=== PATIENT | male | born 1990 | race Hispanic/Latino ===

== ENCOUNTER 2019-04-10 20:33 | Emergency (ER) | payer SELFPAY ==
[2019-04-10 21:24] LABS: Absolute Lymphocytes (CBC) 2.6 K/uL (0.7-4.9); Absolute Monocytes 0.9 K/uL (0.1-1.3); Absolute Neutrophil 4.6 K/uL (1.8-8.0); Basophils % 0.5 % (0-1.3); Eosinophils % 4.6 % (0-4.4); Hematocrit 44.6 % (39.6-49.0); Lymphocytes % 30.7 % (15.3-44.8); MPV 9.1 fL (7.6-11.3); Monocytes % 10.5 % (3.3-12.3); RBC Red Blood Cell Count 5.08 M/uL (4.33-5.43)
[2019-04-10 21:27] LABS: Protime INR 1.04
--- NOTE | 2019-04-10 21:41 | EDPHYS ---
Physician Documentation [facility] Name: Brennan Everett Age: 28 yrs Sex: Male : 1990 Arrival Date: 04/10/2019 Time: 20:34 Bed 15 Private MD: ED Physician Teddy Arguello HPI: 04/10 20:55 This 28 yrs old Male presents to ER via Unassigned with complaints of lt side juan pablo numbness. 20:55 The patient's problem is reported as numbness to left face and left leg, possible left juan pablo facial weakness. Onset: The symptoms/episode began/occurred just prior to arrival, today. Duration: The episode is continuous. Context: the episode(s) was witnessed, by a friend. The symptoms are alleviated by nothing. The symptoms are aggravated by nothing. Associated signs and symptoms: The patient has no apparent associated signs or symptoms. Severity of symptoms: At their worst the symptoms were very mild in the emergency department the symptoms have improved moderately. Patient's baseline: Neuro: alert and fully oriented. The patient has not experienced similar symptoms in the past. Historical: - Home Meds: 21:01 None [Active]; ea - PMHx: 21:01 None; ea - PSHx: 21:01 None; ea - Immunization history:: Adult Immunizations up to date. - Social history:: Smoking status: Patient/guardian denies using tobacco. - Family history:: not pertinent. - Ebola Screening: : No symptoms or risks identified at this time. ROS: 20:55 Constitutional: Negative for fever, chills, and weight loss, Eyes: Negative for injury, juan pablo pain, redness, and discharge, ENT: Negative for injury, pain, and discharge, Neck: Negative for injury, pain, and swelling, Cardiovascular: Negative for chest pain, palpitations, and edema, Respiratory: Negative for shortness of breath, cough, wheezing, and pleuritic chest pain, Abdomen/GI: Negative for abdominal pain, nausea, vomiting, diarrhea, and constipation, Back: Negative for injury and pain, : Negative for injury, bleeding, discharge, and swelling, MS/Extremity: Negative for injury and deformity, Skin: Negative for injury, rash, and discoloration, Psych: Negative for depression, anxiety, suicide ideation, homicidal ideation, and hallucinations, Allergy/Immunology: Negative for hives, rash, and allergies, Endocrine: Negative for neck swelling, polydipsia, polyuria, polyphagia, and marked weight changes, Hematologic/Lymphatic: Negative for swollen nodes, abnormal bleeding, and unusual bruising. 20:55 Neuro: Positive for numbness, tingling, of the face and left leg. Exam: 20:55 Radiologist reports: see report juan pablo 20:55 Constitutional: This is a well developed, well nourished patient who is awake, alert, and in no acute distress. Head/Face: Normocephalic, atraumatic. Eyes: Pupils equal round and reactive to light, extra-ocular motions intact. Lids and lashes normal. Conjunctiva and sclera are non-icteric and not injected. Cornea within normal limits. Periorbital areas with no swelling, redness, or edema. ENT: Nares patent. No nasal discharge, no septal abnormalities noted. Tympanic membranes are normal and external auditory canals are clear. Oropharynx with no redness, swelling, or masses, exudates, or evidence of obstruction, uvula midline. Mucous membranes moist. Neck: Trachea midline, no thyromegaly or masses palpated, and no cervical lymphadenopathy. Supple, full range of motion without nuchal rigidity, or vertebral point tenderness. No Meningismus. Chest/axilla: Normal chest wall appearance and motion. Nontender with no deformity. No lesions are appreciated. Cardiovascular: Regular rate and rhythm with a normal S1 and S2. No gallops, murmurs, or rubs. Normal PMI, no JVD. No pulse deficits. Respiratory: Lungs have equal breath sounds bilaterally, clear to auscultation and percussion. No rales, rhonchi or wheezes noted. No increased work of breathing, no retractions or nasal flaring. Abdomen/GI: Soft, non-tender, with normal bowel sounds. No distension or tympany. No guarding or rebound. No evidence of tenderness throughout. Back: No spinal tenderness. No costovertebral tenderness. Full range of motion. Male : Normal genitalia with no discharge or lesions. Skin: Warm, dry with normal turgor. Normal color with no rashes, no lesions, and no evidence of cellulitis. MS/ Extremity: Pulses equal, no cyanosis. Neurovascular intact. Full, normal range of motion. Neuro: Awake and alert, GCS 15, oriented to person, place, time, and situation. Cranial nerves II-XII grossly intact. Motor strength 5/5 in all extremities. Sensory grossly intact. Cerebellar exam normal. Normal gait. Psych: Awake, alert, with orientation to person, place and time. Behavior, mood, and affect are within normal limits. 21:39 Neuro: Orientation: is normal, appropriate for stated age, no acute changes, Mentation: juan pablo is normal, appropriate for stated age, no acute changes, Memory: is normal, appropriate for stated age, no acute changes, Cranial nerves: grossly normal, is grossly normal based on the patient's age, no acute changes, visual aguila are intact. extraocular movements are intact, Decreased sensation on left ear, left mosque and left jaw, Nystagmus is absent. Motor: is normal, is grossly normal based on the patient's age, no acute changes, moves all fours, strength is normal, strength is 5/5 in all extremities, Sensation: no obvious gross deficits, appropriate no acute changes, Gait: is steady, appropriate for age, Deep tendon reflexes are 2+ (normal) in the bilateral brachioradialis, bicep, tricep and patellar and Achilles tendons, Babinski testing is normal, seizure activity, is not displayed by the patient. 21:41 Neuro: pt at 931pm, states without deficit, at his baseline, nih 0, [address] juan pablo belle neuro manager web application, no answer , no response. not a tpa candidate at this time. will transfer to neuro. 21:58 Neuro: dr belle, [id number],, after story, no tpa. [facility] 22:08 Neuro: 1015pm, pt with no motor or sensory deficits. [facility] Vital Signs: 20:59 BP 135 / 85; Pulse 102; Resp 18; Temp 98.1; Pulse Ox 99% on R/A; Pain 0/10; ea 21:59 BP 125 / 92; Pulse 81; Resp 20; Pulse Ox 99% on R/A; jb4 22:30 BP 123 / 84; Pulse 75; Resp 17; Pulse Ox 100% on R/A; jb4 23:17 BP 121 / 81; Pulse 73; Resp 16; Pulse Ox 100% on R/A; jb4 NIH Stroke Scale Scores: 20:59 NIHSS Score: 0 ea 20:59 NIHSS Score: 0 [facility] [place] Coma Score: 21:05 Eye Response: spontaneous(4). Verbal Response: oriented(5). Motor Response: obeys jb4 commands(6). Total: 15. 21:41 Eye Response: spontaneous(4). Verbal Response: oriented(5). Motor Response: obeys juan pablo commands(6). Total: 15. 21:59 Eye Response: spontaneous(4). Verbal Response: oriented(5). Motor Response: obeys jb4 commands(6). Total: 15. 22:30 Eye Response: spontaneous(4). Verbal Response: oriented(5). Motor Response: obeys jb4 commands(6). Total: 15. 23:17 Eye Response: spontaneous(4). Verbal Response: oriented(5). Motor Response: obeys jb4 commands(6). Total: 15. MDM: 20:38 Patient medically screened. [facility] 20:59 Data reviewed: vital signs, nurses notes, lab test result(s), EKG, radiologic studies, [facility] CT scan, doppler, plain films. 04/10 20:54 Order name: Basic Metabolic Panel [facility] 04/10 20:54 Order name: CBC with Diff [facility] 04/10 20:54 Order name: LFT's [facility] 04/10 20:54 Order name: Magnesium; Complete Time: 21:58 [facility] 04/10 20:54 Order name: NT PRO-BNP; Complete Time: 21:58 [facility] 04/10 20:54 Order name: PT-INR; Complete Time: 21:28 [facility] 04/10 20:54 Order name: Troponin (emerg Dept Use Only); Complete Time: 21:58 [facility] 04/10 20:54 Order name: XRAY Chest (1 view) [facility] 04/10 20:54 Order name: US Carotid Artery Bilateral [facility] 04/10 20:54 Order name: UDS; Complete Time: 22:24 [facility] 04/10 20:57 Order name: Basic Metabolic Panel; Complete Time: 21:58 EDTN 04/10 20:57 Order name: CBC with Automated Diff; Complete Time: 21:28 EDTN 04/10 20:57 Order name: Liver (Hepatic) Function; Complete Time: 21:58 EDTN 04/10 22:16 Order name: Urine Dipstick--Ancillary (enter results) [facility] 04/10 20:54 Order name: EKG; Complete Time: 20:57 [facility] 04/10 20:54 Order name: Cardiac monitoring; Complete Time: 21:26 [facility] 04/10 20:54 Order name: EKG - Nurse/Tech; Complete Time: 21:26 [facility] 04/10 20:54 Order name: IV Saline Lock; Complete Time: 21:25 [facility] 04/10 20:54 Order name: Labs collected and sent; Complete Time: 21:25 [facility] 04/10 20:54 Order name: O2 Per Protocol; Complete Time: 21:25 [facility] 04/10 20:54 Order name: O2 Sat Monitoring; Complete Time: 21:25 [facility] 04/10 20:54 Order name: CT Stroke Brain w/o Contrast [facility] 04/10 20:54 Order name: CT Head Angio [facility] Administered Medications: 21:50 Drug: NS 0.9% 1000 ml Route: IV; Rate: 1 bolus; Site: right antecubital; jb4 21:50 Drug: foLIC Acid 1 mg Route: IVPB; Site: right antecubital; jb4 22:20 Follow up: Response: No adverse reaction; IV Status: Completed infusion; IV Intake: jb4 100ml 21:50 Drug: Aspirin Chewable Tablet 324 mg Route: PO; jb4 22:21 Follow up: Response: No adverse reaction jb4 22:20 Drug: Potassium Effervescent Tablet 50 mEq Route: PO; jb4 Point of Care Testing: Blood Glucose: 21:05 Blood Glucose: 95 mg/dL; jb4 Ranges: Critical Glucose Levels:Adult <50 mg/dl or >400 mg/dl <40 mg/dl or >180 mg/dl Disposition: 04/11/19 00:10 Patient has left against medical advice. - Patients states they are going to Home. - Condition is Stable. NIH Stroke Scale - NIH Stroke Score Date: 04/10/2019 Time: 20:59 Total Score = 0 1a. Level of Consciousness (LOC) - 0(Alert) 1b. Level of Consciousness (LOC) (Year \T\ Age) - 0(Both) 1c. LOC Commands (Open \T\ Closes Eyes/Power Distribution Engineer) - 0(Both) 2. Best Gaze (Lateral Gaze Paresis) - 0(Normal) 3. Visual Field Loss - 0(No visual loss) 4. Facial Palsy - 0(Normal) 5a. Left Arm: Motor (10-second hold) - 0(No drift) 5b. Right Arm: Motor (10-second hold) - 0(No drift) 6a. Left Leg: Motor (5-second hold - always test supine) - 0(No drift) 6b. Right Leg: Motor (5-second hold - always test supine) - 0(No drift) 7. Limb Ataxia (finger/nose \T\ heel/light - test with eyes open) - 0(Absent) 8. Sensory Loss (pinprick arms/legs/face) - 0(Normal) 9. Best Language: Aphasia (description/naming/reading) - 0(No aphasia) 10. Dysarthria (speech clarity - read or repeat words) - 0(Normal) 11. Extinction and Inattention (visual/tactile/auditory/spatial/personal) - 0(No abnormality) Initials: ana NIH Stroke Scale - NIH Stroke Score Date: 04/10/2019 Time: 20:59 Total Score = 0 1a. Level of Consciousness (LOC) - 0(Alert) 1b. Level of Consciousness (LOC) (Year \T\ Age) - 0(Both) 1c. LOC Commands (Open \T\ Closes Eyes/Power Distribution Engineer) - 0(Both) 2. Best Gaze (Lateral Gaze Paresis) - 0(Normal) 3. Visual Field Loss - 0(No visual loss) 4. Facial Palsy - 0(Normal) 5a. Left Arm: Motor (10-second hold) - 0(No drift) 5b. Right Arm: Motor (10-second hold) - 0(No drift) 6a. Left Leg: Motor (5-second hold - always test supine) - 0(No drift) 6b. Right Leg: Motor (5-second hold - always test supine) - 0(No drift) 7. Limb Ataxia (finger/nose \T\ heel/light - test with eyes open) - 0(Absent) 8. Sensory Loss (pinprick arms/legs/face) - 0(Normal) 9. Best Language: Aphasia (description/naming/reading) - 0(No aphasia) 10. Dysarthria (speech clarity - read or repeat words) - 0(Normal) 11. Extinction and Inattention (visual/tactile/auditory/spatial/personal) - 0(No abnormality) Initials: juan pablo Signatures: Dispatcher [employer] EDTeddy Mendieta MD MD cha Ballard, Brenda RN RN Sal Baker, RN RN jb4 Mary Jo Alberto, RN RN ea Corrections: (The following items were deleted from the chart) 22:26 21:39 04/10/2019 21:39 Transfer ordered to [facility]. Diagnosis is Transient cerebral ischemic attack, unspecified - resolves. Reason for transfer: Higher level of care. Accepting physician is to . Condition is Stable. Problem is new. Symptoms are resolved. [facility] 04/11 00:10 04/10 22:27 Hospitalization Ordered by Serge Diaz MD for Observation. karen Preliminary diagnosis is Transient cerebral ischemic attack, unspecified - resolved; Hypokalemia. Bed requested for Telemetry/MedSurg (observation). Status is Observation. Condition is Stable. Problem is new. Symptoms have improved. UTI on Admission? No. juan pablo
--- NOTE | 2019-04-10 21:41 | ER ---
Nurse's Notes [facility] Name: Brennan Everett Age: 28 yrs Sex: Male : 1990 Arrival Date: 04/10/2019 Time: 20:34 Bed 15 Private MD: Diagnosis: Presentation: 04/10 20:57 Presenting complaint: Patient states: Pt reports he has been having left face and leg ea numbness around 8 PM. Transition of care: patient was not received from another setting of care. Onset of symptoms was April 10, 2019. Risk Assessment: Do you want to hurt yourself or someone else? Patient reports no desire to harm self or others. Initial Sepsis Screen: Does the patient meet any 2 criteria? No. Patient's initial sepsis screen is negative. Does the patient have a suspected source of infection? No. Patient's initial sepsis screen is negative. Care prior to arrival: None. 20:57 Method Of Arrival: Wheelchair ea 20:57 Acuity: JILL 3 ea Historical: - Home Meds: 21:01 None [Active]; ea - PMHx: 21:01 None; ea - PSHx: 21:01 None; ea - Immunization history:: Adult Immunizations up to date. - Social history:: Smoking status: Patient/guardian denies using tobacco. - Family history:: not pertinent. - Ebola Screening: : No symptoms or risks identified at this time. Screenin:59 Abuse screen: Denies threats or abuse. Nutritional screening: No deficits noted. ea Tuberculosis screening: No symptoms or risk factors identified. 21:05 Fall Risk IV access (20 points). Gait- Normal/Bed Rest/Wheelchair (0 pts) Total Saenz jb4 Fall Scale indicates No Risk (0-24 pts). Assessment: 20:59 General: Appears in no apparent distress. comfortable, Behavior is calm, cooperative, jb4 appropriate for age. Pain: Denies pain. Neuro: Level of Consciousness is awake, alert, obeys commands, Oriented to person, place, time, situation, Process Controls Technician are equal bilaterally Moves all extremities. Full function Gait is steady, Speech is normal, Facial symmetry appears normal, Pupils are PERRLA, Intact numbness to left leg and left face.. Cardiovascular: Patient's skin is warm and dry. Rhythm is sinus rhythm. Respiratory: Airway is patent Respiratory effort is even, unlabored, Respiratory pattern is regular, symmetrical, Breath sounds are clear bilaterally. GI: No signs and/or symptoms were reported involving the gastrointestinal system. : No signs and/or symptoms were reported regarding the genitourinary system. EENT: No signs and/or symptoms were reported regarding the EENT system. Derm: Skin is intact, Skin is pink, warm \T\ dry. Musculoskeletal: Circulation, motion, and sensation intact. Range of motion: intact in all extremities. 21:59 Reassessment: Patient appears in no apparent distress at this time. No changes from jb4 previously documented assessment. Patient and/or family updated on plan of care and expected duration. Pain level reassessed. Patient is alert, oriented x 3, equal unlabored respirations, skin warm/dry/pink. Pt to CT. 22:59 Reassessment: Patient appears in no apparent distress at this time. Patient and/or jb4 family updated on plan of care and expected duration. Pain level reassessed. Patient is alert, oriented x 3, equal unlabored respirations, skin warm/dry/pink. PT denies numbness Patient states feeling better. Patient states symptoms have improved. 23:20 Reassessment: Patient is alert, oriented x 3, equal unlabored respirations, skin jb4 warm/dry/pink. Pt opted to leave against medical advice even after risks and consequences where explained, including worsening of symptoms and or . Pt verbalized understanding of said risk and consequences. Pt signed AMA form, left ambulatory with friend, ambulated with steady gate, IV discontinued. Vital Signs: 20:59 BP 135 / 85; Pulse 102; Resp 18; Temp 98.1; Pulse Ox 99% on R/A; Pain 0/10; ea 21:59 BP 125 / 92; Pulse 81; Resp 20; Pulse Ox 99% on R/A; jb4 22:30 BP 123 / 84; Pulse 75; Resp 17; Pulse Ox 100% on R/A; jb4 23:17 BP 121 / 81; Pulse 73; Resp 16; Pulse Ox 100% on R/A; jb4 [place] Coma Score: 21:05 Eye Response: spontaneous(4). Verbal Response: oriented(5). Motor Response: obeys jb4 commands(6). Total: 15. 21:41 Eye Response: spontaneous(4). Verbal Response: oriented(5). Motor Response: obeys juan pablo commands(6). Total: 15. 21:59 Eye Response: spontaneous(4). Verbal Response: oriented(5). Motor Response: obeys jb4 commands(6). Total: 15. 22:30 Eye Response: spontaneous(4). Verbal Response: oriented(5). Motor Response: obeys jb4 commands(6). Total: 15. 23:17 Eye Response: spontaneous(4). Verbal Response: oriented(5). Motor Response: obeys jb4 commands(6). Total: 15. NIH Stroke Scale Scores: 20:59 NIHSS Score: 0 ea 20:59 NIHSS Score: 0 juan pablo ED Course: 20:34 Patient arrived in ED. es 20:37 Teddy Arguello MD is Attending Physician. juan pablo 20:50 Arm band placed on right wrist. Patient placed in an exam room, on a stretcher, on ea pulse oximetry. 20:59 Triage completed. ea 21:01 Patient taken to ultrasound. yan 21:05 Patient has correct armband on for positive identification. Placed in gown. Bed in low jb4 position. Call light in reach. Side rails up X 1. personnel monitor on. Pulse ox on. NIBP on. 21:05 Inserted saline lock: 20 gauge in right antecubital area, using aseptic technique. jb4 21:12 CT Stroke Brain w/o Contrast In Process Unspecified. EDMS 21:13 XRAY Chest (1 view) In Process Unspecified. EDMS 21:21 Radiology exam delayed due to lab results not completed at this time. IV insertion vm2 attempt and/or patient not having appropriate IV at this time. 21:27 Sal Bauman, RN is Primary Nurse. jb4 21:47 Radiology exam delayed due to lab results not completed at this time. vm2 21:48 Patient moved back from ultrasound. yan 21:52 US Carotid Artery Bilateral In Process Unspecified. EDMS 22:10 CT Head Angio In Process Unspecified. EDMS 22:26 Serge Diaz MD is Hospitalizing Provider. juan pablo 23:18 No provider procedures requiring assistance completed. IV discontinued, intact, jb4 bleeding controlled, No redness/swelling at site. Administered Medications: 21:50 Drug: NS 0.9% 1000 ml Route: IV; Rate: 1 bolus; Site: right antecubital; jb4 21:50 Drug: foLIC Acid 1 mg Route: IVPB; Site: right antecubital; jb4 22:20 Follow up: Response: No adverse reaction; IV Status: Completed infusion; IV Intake: jb4 100ml 21:50 Drug: Aspirin Chewable Tablet 324 mg Route: PO; jb4 22:21 Follow up: Response: No adverse reaction jb4 22:20 Drug: Potassium Effervescent Tablet 50 mEq Route: PO; jb4 Point of Care Testing: Blood Glucose: 21:05 Blood Glucose: 95 mg/dL; jb4 Ranges: Intake: 22:20 IV: 100ml; Total: 100ml. jb4 Outcome: 21:39 ER care complete, transfer ordered by . juan pablo 22:27 Decision to Hospitalize by Provider. juan pablo 23:18 AMA jb4 23:18 Condition: stable 23:18 Instructed on follow up and referral plans. 04/11 00:10 Patient left the ED. bb NIH Stroke Scale - NIH Stroke Score Date: 04/10/2019 Time: 20:59 Total Score = 0 1a. Level of Consciousness (LOC) - 0(Alert) 1b. Level of Consciousness (LOC) (Year \T\ Age) - 0(Both) 1c. LOC Commands (Open \T\ Closes Eyes/Php Website Developer) - 0(Both) 2. Best Gaze (Lateral Gaze Paresis) - 0(Normal) 3. Visual Field Loss - 0(No visual loss) 4. Facial Palsy - 0(Normal) 5a. Left Arm: Motor (10-second hold) - 0(No drift) 5b. Right Arm: Motor (10-second hold) - 0(No drift) 6a. Left Leg: Motor (5-second hold - always test supine) - 0(No drift) 6b. Right Leg: Motor (5-second hold - always test supine) - 0(No drift) 7. Limb Ataxia (finger/nose \T\ heel/light - test with eyes open) - 0(Absent) 8. Sensory Loss (pinprick arms/legs/face) - 0(Normal) 9. Best Language: Aphasia (description/naming/reading) - 0(No aphasia) 10. Dysarthria (speech clarity - read or repeat words) - 0(Normal) 11. Extinction and Inattention (visual/tactile/auditory/spatial/personal) - 0(No abnormality) Initials: ana NIH Stroke Scale - NIH Stroke Score Date: 04/10/2019 Time: 20:59 Total Score = 0 1a. Level of Consciousness (LOC) - 0(Alert) 1b. Level of Consciousness (LOC) (Year \T\ Age) - 0(Both) 1c. LOC Commands (Open \T\ Closes Eyes/Php Website Developer) - 0(Both) 2. Best Gaze (Lateral Gaze Paresis) - 0(Normal) 3. Visual Field Loss - 0(No visual loss) 4. Facial Palsy - 0(Normal) 5a. Left Arm: Motor (10-second hold) - 0(No drift) 5b. Right Arm: Motor (10-second hold) - 0(No drift) 6a. Left Leg: Motor (5-second hold - always test supine) - 0(No drift) 6b. Right Leg: Motor (5-second hold - always test supine) - 0(No drift) 7. Limb Ataxia (finger/nose \T\ heel/light - test with eyes open) - 0(Absent) 8. Sensory Loss (pinprick arms/legs/face) - 0(Normal) 9. Best Language: Aphasia (description/naming/reading) - 0(No aphasia) 10. Dysarthria (speech clarity - read or repeat words) - 0(Normal) 11. Extinction and Inattention (visual/tactile/auditory/spatial/personal) - 0(No abnormality) Initials: juan pablo Signatures: Dispatcher [employer] Teddy Florian MD MD cha Salyer, Edna es Ballard, Brenda, RN RN bb Dupre, Jacques jd Bryson, James, RN RN jb4 McGuire, Victoria vm2 Antunez, Elena, RN RN ea Corrections: (The following items were deleted from the chart) 04/10 22:02 21:59 Reassessment: Patient appears in no apparent distress at this time. jb4 Patient and/or family updated on plan of care and expected duration. Pain level reassessed. Patient is alert, oriented x 3, equal unlabored respirations, skin warm/dry/pink. Pt to CT jb4 04/11 01:08 04/10 23:20 Reassessment: Pt decided to leave AMA, verbalized understanding of jb4 leaving AMA, AMA form signed. jb4 04/11 01:21 04/10 22:59 Reassessment: Patient appears in no apparent distress at this time. jb4 Patient and/or family updated on plan of care and expected duration. Pain level reassessed. Patient is alert, oriented x 3, equal unlabored respirations, skin warm/dry/pink. Patient states feeling better. Patient states symptoms have improved. jb4
[2019-04-10] MEDS ORDERED: ASPIRIN 81 MG CHEWABLE TABLET ONE (21:43)
[2019-04-10] MEDS ORDERED: NA CHLORIDE 0.9% 100 ML IV ONE ×2 (21:44→21:56)
[2019-04-10 21:45] LABS: ALT/SGPT 31 U/L (12-78); AST/SGOT 20 U/L (15-37); Albumin 4.1 g/dL (3.4-5.0); Alkaline Phosphatase 76 U/L (45-117); BUN Blood Urea Nitrogen 18 mg/dL (7-18); Bicarbonate 29 mmol/L (21-32); Bilirubin Direct < 0.1 mg/dL (0-0.2); Bilirubin Total 0.5 mg/dL (0.2-1.0); Glucose Level 101 mg/dL (74-106); Magnesium 2.2 mg/dL (1.8-2.4); Potassium 3.3 mmol/L (3.5-5.1); Sodium Level 142 mmol/L (136-145); Troponin (Emerg Dept Use Only) < 0.02 ng/mL (0.0-0.045)
[2019-04-10 21:48] LABS: NT PRO-BNP < 5 pg/mL (<125)
[2019-04-10] MEDS ORDERED: FOLIC ACID 5 MG/ML VIAL ONE (21:58)
[2019-04-10 22:23] LABS: Barbiturates NEGATIVE (NEGATIVE); Benzodiazepines NEGATIVE (NEGATIVE); Cocaine NEGATIVE (NEGATIVE); METHAMPHETAM NEGATIVE (NEGATIVE); Methadone NEGATIVE (NEGATIVE); Opiates NEGATIVE (NEGATIVE); Phencyclidine NEGATIVE (NEGATIVE); THC Cannibis NEGATIVE (NEGATIVE)
[2019-04-10] MEDS ORDERED: POTASSIUM 25 MEQ EFFERV TAB ONE (22:32)
[2019-04-11 00:32] LABS: Urine Blood NEGATIVE (NEG); Urine Glucose NEGATIVE (NEG); Urine Protein NEGATIVE (NEG); Urine pH 8.5 (5.0-7.0)
--- NOTE | 2019-04-11 06:17 | EKG ---
Test Date: 2019-04-10 Test Time: 21:13:54 Control Clerk [employer] Beverage: HAIDER MEASUREMENT RESULTS: Intervals: Rate: 84 [place]: 150 QRSD: 100 QT: 352 QTc: 415 [place]: P: 44 NJ: 150 QRS: 51 T: 37 INTERPRETIVE STATEMENTS: Normal sinus rhythm with sinus arrhythmia Normal ECG No previous ECG available for comparison Electronically Signed On 04-11-19 06:16:44 CDT by Perfecto Humphrey
--- NOTE | 2019-04-11 08:00 | RAD REPORT ---
EXAM DESCRIPTION: Arm[place] Single View04/10/2019 9:11 pm CLINICAL HISTORY: Cough COMPARISON: none FINDINGS: The lungs appear clear of acute infiltrate. The heart is normal size IMPRESSION: No acute abnormalities displayed
--- NOTE | 2019-04-11 08:02 | RAD REPORT ---
EXAM DESCRIPTION: USCarotid Artery Bilateral04/10/2019 9:51 pm CLINICAL HISTORY: Numbness COMPARISON: None FINDINGS: The velocity of the right internal carotid artery equals 93 cm/sec. The right ICA/CCA rati o 0.8 The velocity of the left internal carotid artery equals 110 cm/sec. The left ICA/CCA ratio 0.8 Plaque is not seen within the carotid arteries. The vertebral arteries demonstrate antegrade flow IMPRESSION: Unremarkable exam NASCET criteria used. Mild 0-49% stenosis Moderate 50-69% stenosis Severe 70-99% stenosis
--- NOTE | 2019-04-11 11:07 | RAD REPORT ---
EXAM DESCRIPTION: CT - Ct Stroke Brain Wo Cont - 04/10/2019 11:08 pm TECHNIQUE: Axial scans of the brain without contrast including multiplanar computer-generated reform ations. Total Dose Length Product: A 37. This exam was performed according to our departmental dose-optimization program, which includes autom ated exposure control, adjustment of the mA and/or kV according to patient size and/or use of iterati ve reconstruction technique. COMPARISON: None. CLINICAL HISTORY: NUMBNESS. FINDINGS: Scalp: Unremarkable. Intracranial mass: None. Intracranial density: Unremarkable. Intracranial hemorrhage: No intracranial hemorrhage. Extra-axial fluid collection: None. Midline shift: None Ventricles, subarachnoid spaces and sulci: Normal. Calvarium: Unremarkable. Orbits: Unremarkable. Paranasal sinuses: Aerated. IMPRESSION: 1. No acute intracranial findings. If further imaging evaluation for numbness is desired recommend diffusion-weighted MRI. Discussed findings with Dr. Barajas at 9:20 PM. Electronically signed by: Presley Woody MD 04/10/2019 9:21 PM CDT Due to temporary technical issues with the PACS/Fluency reporting system, reports are being signed by the in house radiologist as a courtesy to ensure prompt reporting. The interpreting radiologist is f ully responsible for the content of the report.
--- NOTE | 2019-04-11 11:12 | RAD REPORT ---
EXAM DESCRIPTION: CT - Head angio - 04/10/2019 11:07 pm CLINICAL HISTORY: The patient is 28 years old and is Male; NUMBNESS TECHNIQUE: Axial computed tomography images of the head with intravenous contrast during the arteria l phase of enhancement. Sagittal and coronal reformatted images were created and reviewed. This C T exam was performed using one or more of the following dose reduction techniques: automated exposu re control, adjustment of the mA and/or kV according to patient size, and/or use of iterative reconst ruction technique. COMPARISON: CT head without contrast of the same day. FINDINGS: RIGHT INTERNAL CAROTID ARTERY: No acute findings. Intracranial segment is patent with no significant stenosis. No aneurysm. RIGHT ANTERIOR CEREBRAL ARTERY: Unremarkable. No occlusion or significant stenosis. No aneurys m. RIGHT MIDDLE CEREBRAL ARTERY: Unremarkable. No occlusion or significant stenosis. No aneurysm. RIGHT POSTERIOR CEREBRAL ARTERY: Unremarkable. No occlusion or significant stenosis. No aneury sm. RIGHT VERTEBRAL ARTERY: Unremarkable as visualized. LEFT INTERNAL CAROTID ARTERY: No acute findings. Intracranial segment is patent with no signific ant stenosis. No aneurysm. LEFT ANTERIOR CEREBRAL ARTERY: Unremarkable. No occlusion or significant stenosis. No aneurysm . LEFT MIDDLE CEREBRAL ARTERY: Unremarkable. No occlusion or significant stenosis. No aneurysm. LEFT POSTERIOR CEREBRAL ARTERY: Unremarkable. No occlusion or significant stenosis. No aneurys m. LEFT VERTEBRAL ARTERY: Unremarkable as visualized. BASILAR ARTERY: Unremarkable. No occlusion or significant stenosis. No aneurysm. IMPRESSION: No CTA abnormality of the intracranial arterial vasculature. Electronically signed by: Hector Miramontes DO 04/10/2019 10:24 PM CDT Due to temporary technical issues with the PACS/Fluency reporting system, reports are being signed by the in house radiologist as a courtesy to ensure prompt reporting. The interpreting radiologist is f ully responsible for the content of the report.
== END 2019-04-11 00:10 | disposition left against medical advice (07) ==
LOC: ER 20:33
DX: R20.0 Anesthesia of skin (principal)
CPT/HCPCS: 36415; 70450; 70496; 71045; 80048; 80076; 80307; 81003; 82962; 83735; 83880; 84484; 85025; 85610; 93005; 93880; 96365; 99285; Q9967